=== PATIENT | male | born 1985 | race Two or more races ===

== ENCOUNTER 2022-08-11 12:13 | Emergency (ER) | payer OTHER, SELFPAY ==
--- NOTE | 2022-08-11 12:25 | ED.GENADULT ---
HPI - General Adult General Chief complaint: Abdominal Pain Stated complaint: R side pain Time Seen by Provider: 08/11/22 16:03 Source: patient Mode of arrival: ambulatory Limitations: no limitations History of Present Illness HPI narrative: Patient is a 37-year-old male with no reported past medical history presenting to emergency department for evaluation of sudden onset right sided abdominal/flank pain at 1000 today. Pain has been persistent with varying intensity. At the time my examination reportedly is severe. Has associated nausea. He also endorses difficulty with urination. Though denies dysuria, hematuria. Denies any testicular pain or swelling. He denies concern for sexually transmitted infections. Denies left-sided abdominal pain, vomiting, fevers chills, diarrhea, constipation, bloody or dark stools. Related Data Previous Rx's Medication Instructions Recorded ibuprofen 800 mg tablet 800 mg PO Q8H PRN pain #20 tabs 08/11/22 oxycodone 5 mg tablet 5 mg PO Q6H PRN pain #14 tabs 08/11/22 prednisone 20 mg tablet 20 mg PO BID 3 days #6 tabs 08/11/22 tamsulosin 0.4 mg capsule 0.4 mg PO BEDTIME #14 caps 08/11/22 Allergies Allergy/AdvReac Type Severity Reaction Status Date / Time morphine AdvReac Vomiting Verified 08/11/22 12:42 Review of Systems Review of Systems: Constitutional : No Weight loss, No Fever, No Chills ENT/Mouth :? No sore throat, No Rhinorrhea Eyes: No Swelling, No Redness Cardiovascular : No Chest Pain, No SOB, No Edema Respiratory : No Cough, No Sputum, No Wheezing Gastrointestinal : Positive Nausea, no Vomiting, no Diarrhea, positive abdominal pain, No Hematochezia, No Melena Genitourinary : No Dysuria, positive difficulty voiding No Hematuria, positive Urgency? Musculoskeletal : No joint pain, No Myalgias, No Joint Swelling Skin : No Skin Lesions, No rash Neuro : No Weakness, No Numbness, No Dizziness, No Headache Psych : No Anxiety/Panic, No Depression Heme/Lymph: No Bruising, No Lymphadenopathy Endocrine : No Polyuria, No Polydipsia Yes all other systems are reviewed and are negative PMFSH Past Medical History Attestation statement: The following information was validated with the patient. Source: old records reviewed Social History Social History Use of substances other than those prescribed or required for medical reasons: No Advance Directives: No Advance Directives Information Provided: No Physical Exam ED Vital Signs: Vital Signs - 24 hr 08/11/22 12:42 08/11/22 15:48 08/11/22 16:49 Temperature 98.1 F Pulse Rate 66 52 56 Respiratory Rate 18 18 16 Blood Pressure 138/71 150/72 H 141/61 H Pulse Oximetry 100 100 100 Oxygen Delivery Method Room Air Room Air Room Air 08/11/22 19:06 Temperature 97.9 F Pulse Rate 61 Respiratory Rate 16 Blood Pressure 129/71 Pulse Oximetry 98 Oxygen Delivery Method Room Air BMI result Body Mass Index 29.5 Appearance: Alert.?Oriented to person, place and time. No acute distress.?Normal affect. Eyes: Pupils equal, round and reactive to light.? ENT: Pharynx normal.?? Neck: Normal inspection.? Neck supple.?? CVS: Heart sounds normal. Normal heart rate and rhythm.? Pulses normal.?? Respiratory: No respiratory distress.? Lung sounds clear to auscultation bilaterally?? Abdomen: Soft with right-sided abdominal tenderness upon palpation, no rebound tenderness. No rigidity. No distention. Right CVA tenderness. Normoactive bowel sounds. No pulsatile mass.?? Skin: Skin warm and dry.? Normal skin color.? Extremities: No lower extremity edema.? Full AROM to the bilateral lower extremities Neuro: Moves all extremities spontaneously. Sensation intact bilaterally. CN II-XII intact. No focal neuro deficits. Ambulates with normal steady gait. Course Course Course Narrative: This is an RME: Additional HPI, ROS, PE not included below will be deferred to primary provider. This is a [id number]-male presenting with complaints of right sided abdominal pain, nausea, vomiting since 10:00AM. Reporting dribbling with urination. No hx of kidney stones in the past. Plan: Labs, UA, CT abdomen and pelvis w/o contrast ordered. Reevaluation(s) Reevaluation #1: CBC reveals leukocytosis, lipase and LFTs within normal limits, not consistent with biliary/hepatic etiology. CT of the abdomen and pelvis revealing a partially obstructing distal right ureteral stone at the ureterovesicular junction measuring approximately 1 cm. Pending urinalysis at this time, concern for potential infected stone given leukocytosis, urinalysis pending at this time, will cover with rocephin. In addition CT with incidental finding of a nonaggressive benign-appearing partially sclerotic lesion of the left iliac bone, patient is without any hip or pelvic pain, ambulatory with a steady gait without complication, no tenderness upon palpation. No constitutional symptoms such as fever, night sweats, unintentional weight loss. Patient made aware of this finding, advised outpatient follow-up with primary care provider for further evaluation and management. Time: 16:46 Reevaluation #2: Urinalysis without evidence of infection at this time. Pain is well controlled at this point. I suspect leukocytosis is secondary to inflammation at this time. He is tolerating oral intake. I have reviewed this case with urology; Dr. Muniz, who recommends discharge home and outpatient follow-up. Patient to be discharged with prescription for tamsulosin, NSAID, prednisone, oxycodone, and provided with strict return precautions. All questions were answered. Stable for discharge at this time. Time: 18:38 Medications Administered Discontinued Medications Generic Name Dose Route Start Last Admin Trade Name Faizanq PRN Reason Stop Dose Admin Sodium Chloride 1,000 mls @ 999 mls/hr 08/11/22 16:30 08/11/22 18:26 Ns IV 08/11/22 17:30 Infused .Q1H1M [facility]COL Infusion Ceftriaxone Sodium 1 gm/ 50 mls @ 100 mls/hr 08/11/22 18:00 08/11/22 19:08 Sodium Chloride IV 08/11/22 18:29 Infused ONCE ONE Infusion Ketorolac Tromethamine 30 mg 08/11/22 16:18 08/11/22 16:46 Ketorolac Tromethamine 30 Mg/Ml Vial IVPUSH 08/11/22 16:19 30 mg ONCE ONE Administration Ondansetron HCl 4 mg 08/11/22 16:18 08/11/22 16:46 Ondansetron Hcl 4 Mg/2 Ml Vial IVPUSH 08/11/22 16:19 4 mg ONCE ONE Administration Medical Decision Making Medical Decision Making MDM Narrative: Patient is a 37-year-old male with no reported past medical history presenting to emergency department for sudden onset right-sided abdominal pain as per HPI. At the time of my examination he appears in significant discomfort, having difficulty sitting still on the stretcher. Having nausea but no vomiting. Notable tenderness upon palpation of the right abdomen and CVA. He is afebrile and without tachycardia. Will obtain CBC to evaluate for leukocytosis/ anemia, CMP and lipase to evaluate for abnormal electrolytes /abnormal renal function/ abnormal hepatic/biliary function, CT of the abdomen and pelvis, and Urinalysis. Differential Diagnosis Differential Diagnoses: The differential diagnosis associated with the presentation includes (Appendicitis, diverticulitis, nephrolithiasis, ureteral calculi, obstructive calculi, pyelonephritis, urinary tract infection, hydronephrosis,) Admission/Observation Consideration of admission/observation: Escalation of care including admission/observation considered (I considered evaluation for abdominal pain with nausea. Please see narrative above and course.) Consult Healthcare Provider Management of the patient was discussed with: Edge Kitter (Urology; see course narrative) Lab Data MDM Lab Attestation statement: I reviewed the patient's lab results. (See narrative in course) 08/11/22 12:55 08/11/22 12:55 Labs: Lab Results 08/11/22 08/11/22 08/11/22 Range/Units 12:55 12:55 18:02 WBC 15.8 H (4.8-10.8) X10*3/uL RBC 5.43 (4.60-5.80) X10*6/uL Hgb 15.1 (14.0-18.0) g/dl Hct 43.7 (42.0-52.0) % MCV 80.5 (80.0-98.0) fL MCH 27.8 (27.0-33.0) pg MCHC 34.6 (31.0-36.0) g/dl RDW 13.2 (11.0-16.0) % Plt Count 392 (160-400) X10*3/uL MPV 9.6 (9.4-12.4) fL Immature Gran % (Auto) 0.6 H (0.0-0.4) % Neut % (Auto) 76.7 H (45-73) % Lymph % (Auto) 16.8 L (20-40) % Graham % (Auto) 4.5 (2-11) % Eos % (Auto) 1.0 (0-4) % Baso % (Auto) 0.4 (0-2) % Lymph # (Auto) 2.7 (1.2-4.9) X10*3/uL Graham # (Auto) 0.7 (0.1-1.2) X10*3/uL Eos # (Auto) 0.2 (0.0-0.4) X10*3/uL Baso # (Auto) 0.1 (0.0-0.2) X10*3/uL Abs Immat Gran (auto) 0.09 H (0.00-0.03) X10*3/uL Absolute Neuts (auto) 12.1 H (2.0-8.3) x10*3/uL Absolute Nucleated RBC 0.000 (0.0-0.012) X10*3/uL Nucleated RBC % (auto) 0.0 (0.0-0.2) /100WBC Sodium 140 (135-145) mmol/L Potassium 3.7 (3.3-5.1) mmol/L Chloride 106 (96-108) mmol/L Carbon Dioxide 19 L (22-29) mmol/L Anion Gap 19 (12-20) BUN 17 H (9-16) mg/dL Creatinine 1.21 (0.5-1.4) mg/dL Estim Creat Clear Calc 94.8 Estimated GFR > 60 Random Glucose 131 H (60-115) mg/dL Calcium 10.1 (8.4-10.2) mg/dL Magnesium 1.9 (1.6-2.6) mg/dL Total Bilirubin 0.6 (0.0-1.0) mg/dL Direct Bilirubin 0.2 (0.0-0.5) mg/dL AST 22 (5-37) U/L ALT 25 (0-40) U/L Alkaline Phosphatase 73 (39-117) U/L Total Protein 8.0 (6.5-8.0) g/dL Albumin 4.8 (3.5-5.0) g/dL Lipase 15 (8-78) U/L Urine Color Yellow Urine Appearance Cloudy Urine pH 7.5 (5.0-9.0) Ur Specific [place] 1.025 (1.005-1.025) Urine Protein 30 (1+) H (Neg-Trace) mg/dL Urine Glucose (UA) Negative (Negative) mg/dL Urine Ketones 40 (Negative) mg/dL Urine Blood Moderate (2+) H (Negative) Urine Nitrite Negative (Negative) Ur Leukocyte Esterase Negative (Negative) Urine RBC >20 H (0-2) /HPF Urine WBC 0-5 (0-5) /HPF Ur Squamous Epith Cells 0-2 (0-2) /HPF Urine Bacteria None Seen (None Seen) Hyaline Casts 0-2 (0-2) /LPF Radiology Impression Discussion of test interpretation with radiology: I have reviewed the radiologist's reading. Radiologist Impression: CT/CT abdomen pelvis wo IV con IMPRESSION: Partially obstructing distal right ureteral stone at the ureterovesical junction. This measures approximately 1 cm. ? Nonaggressive benign-appearing partially partially sclerotic lesion in left iliac bone. The appearance is nonspecific. 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 Independent Historian Clinical information obtained from an independent historian. History obtained from or confirmed by: Spouse (Patient's spouse is present at bedside and confirms history) External Record Review External record reviewed: Other (Reviewed [facility] prior to prescribing oxycodone and no conflicts) Prescription Management I considered prescription management with: Pain Medication and Other (See course narrative) Discharge Plan Discharge Clinical Impression: Right ureteral calculus Patient Disposition: Home, Self-Care Instructions: Ureteral Stones (ED) Additional Instructions: As discussed, your imaging today shows that you have a stone in your right ureter, this is the small to that allows urine to pass from your kidney to your bladder. Have sent medication to your pharmacy as discussed; Flomax to take once daily, prednisone which is a steroid that you will take twice daily for 3 days, ibuprofen 800 mg, in addition to oxycodone to use as needed for severe pain. Oxycodone is a narcotic medication it can be addictive and it may make you drowsy. He should not drive, drink alcohol, or work while taking this medication. Please contact the urology office 1st thing tomorrow morning to schedule a follow-up visit for next week. You may return back to emergency department with any new or worsening symptoms or concerns such as unrelieved pain with the medication, nausea with persistent vomiting, inability to urinate, fevers or chills Prescriptions: New tamsulosin 0.4 mg capsule 0.4 mg PO BEDTIME Qty: 14 0RF ibuprofen 800 mg tablet 800 mg PO Q8H PRN (Reason: pain) Qty: 20 0RF prednisone 20 mg tablet 20 mg PO BID 3 Days Qty: 6 0RF oxycodone 5 mg tablet 5 mg PO Q6H PRN (Reason: pain) Qty: 14 0RF Rx Instructions: Partial Fill upon patient request. Referrals: Sri Muniz MD [Physician] -
[2022-08-11 12:42] VITALS: BP 138/71; PULSE 66; RESP 18; TEMP 36.7; O2SAT 100; BMI 29.5
[2022-08-11 15:48] VITALS: BP 150/72; PULSE 52; RESP 18; O2SAT 100
--- NOTE | 2022-08-11 16:48 | PC.NURSE ---
20 g IV L AC, fluids and meds given per order.
[2022-08-11 16:49] VITALS: BP 141/61; PULSE 56; RESP 16; O2SAT 100
[2022-08-11 19:06] VITALS: BP 129/71; PULSE 61; RESP 16; TEMP 36.6; O2SAT 98
== END 2022-08-11 19:34 | disposition home or self-care (01) ==
PROVIDERS: Emergency Provider Student in an Organized Health Care Education/Training Program
DX: N20.0 Calculus of kidney (principal)
CPT/HCPCS: 36415; 74176; 80048; 80076; 81001; 83690; 83735; 85025; 96361; 96365; 96375; 99284; J0696; J1885; J2405

== ENCOUNTER 2024-12-29 21:42 | Emergency (ER) | payer SELFPAY ==
--- NOTE | ~2024-12-29 | XR_ITS ---
CLINICAL HISTORY: pain swelling post fall 3 view left ankle Comparison: None provided Findings: There is an acute displaced fracture of the medial malleolus with overlying soft tissue swelling. The ankle mortise is intact. There is soft tissue swelling overlying the lateral malleolus. Large ankle joint effusion. No significant degenerative change. IMPRESSION: Acute displaced fracture of the medial malleolus with large ankle joint effusion This document has been electronically signed by: Shaggy Randall MD on 12/29/2024 22:31:00
[2024-12-29 21:47] VITALS: BP 115/61; PULSE 67; RESP 16; TEMP 36.9; O2SAT 99; BMI 30.6
--- NOTE | 2024-12-29 22:46 | ED_ITS ---
HPI - Extremity Injury (Lower) General Chief Complaint: Extremity Injury, Lower Stated Complaint: Injury Time Seen by Provider: 12/29/24 22:27 Source: patient, RN notes reviewed and old records reviewed Mode of arrival: ambulatory Limitations: no limitations History of Present Illness ED Provider: Ana Paula REYES Narrative: Patient is a 39 year old male presenting today after slip and fall down a slippery grassy hill about an hour ago where he twisted his left ankle and heard a crack. Denies pain in back, head, pelvis. Pt has full ROM and sensation of the the LLE. Tenderness with palpation of the left calf and ankle. No headstike or LOC. Related Data Previous Rx's ?Medication ?Instructions ?Recorded ibuprofen 800 mg tablet 800 mg PO Q8H PRN pain #20 t abs 08/11/22 oxycodone 5 mg tablet 5 mg PO Q6H PRN pain #14 tab s 08/11/22 prednisone 20 mg tablet 20 mg PO BID 3 days #6 tabs 08/11/22 tamsulosin 0.4 mg capsule 0.4 mg PO BEDTIME #14 caps 0 08/11/22 ibuprofen 600 mg tablet 600 mg PO Q6H PRN pain #20 t abs 12/29/24 oxycodone 5 mg tablet 5 mg PO Q8H PRN severe pain (scale 12/29/24 score 7-10) #14 tabs Allergies Allergy/AdvReac Type Severity Reaction Status Date / Time morphine AdvReac Vomiting Verified 12/29/24 21:52 Review of Systems Constitutional: Constitutional: Reports as per HPI, Denies chills, Denies fatigue, Denies fever(s) and Denies headache(s) ENT: Denies headache(s) Cardiovascular: Cardiovascular: Denies chest pain and Denies dyspnea Respiratory: Respiratory: Denies cough and Denies dyspnea Gastrointestinal: Gastrointestinal: Denies abdominal pain, Denies constipation and Denies vomiting Genitourinary: Genitourinary: Denies difficulty urinating and Denies dysuria Musculoskeletal: Musculoskeletal: Reports abnormal gait, Reports arthralgias (Left ankle), Reports joint swelling (left ankle) and Reports limited range of motion Integumentary/Breasts: Skin/Breast: Denies erythema and Denies rash Neurologic: Reports abnormal gait, Denies headache(s) and Denies focal weakness Endocrine: Endocrine: Denies fatigue PMFSH Social History Social History Alcohol intake: never Smoked in Last 30 Days: No Use of substances other than those prescribed or required for medical reasons: Yes Substance Use Type: Marijuana Substance Use Frequency: Occasionally Advance Directives: No Advance Directives Information Provided: No Physical Exam Vital Signs: Vital Signs: Last Vital Signs Temp 98.5 F 12/29/24 21:47 Pulse 67 12/29/24 21:47 Resp 16 12/29/24 21:47 BP 115/61 12/29/24 21:47 Pulse Ox 99 12/29/24 21:47 O2 Del Method Room Air 12/29/24 21:47 BMI result Body Mass Index 30.6 Const: General: healthy appearing, comfortable, no acute distress, alert and awake Nutritional Appearance: well nourished Orientation/consciousness: patient oriented x3 HEENT: Head: Yes normocephalic and Yes atraumatic Resp: Effort & Inspection: normal respiratory effort, able to speak in comp lete sentences and not labored Skin: General skin exam: no rashes or lesions noted and elasticity normal Neuro: General: patient oriented x3 Cognition (Neuro): normal cognition Extrem: Other: There is edema to the medial and lateral malleolus of the left ankle. There appears to be worsening edema over the medial malleolus. This area is tender to palpation. There was minimal left lateral malleolus tenderness. Distal sensation and capillary refill is intact. No Achilles tenderness or calf tenderness. General: Yes normal exam except as noted Left lower extremity: full ROM, normal capillary refill and ankle Details: tenderness, swelling and normal ROM; no warmth and no penetrating wound Medications Administered Discontinued Medications Generic Name Dose Route Start Last Admin Trade Name Venkat PRN Reason Stop Dose Admin Ibuprofen 600 mg 12/29/24 21:52 12/29/24 21:55 Ibuprofen 600 Mg Tablet PO 12/29/24 21:53 600 mg ONCE ONE Administration Oxycodone HCl 5 mg 12/29/24 23:08 12/29/24 23:17 Oxycodone Hcl Immed Release 5 Mg Tablet PO 12/29/24 23:09 5 mg ONCE ONE Administration Medical Decision Making Medical Decision Making [facility] Narrative: 39-year-old male presents for evaluation of left ankle injury after falling. His x-ray shows a medial malleolus fracture with some displacement. There has a large joint effusion. I discussed with orthopedics who recommended splinting with the patient and have him follow up as opposed to a high walking boot. The patient will be given crutches and made nonweightbearing until he follows up with Orthopedics. Differential Diagnosis Differential Diagnoses: The differential diagnosis associated with the presentation includes Ankle sprain Ankle fracture Ankle dislocation Contusion Consult Healthcare Provider Management of the patient was discussed with: Nuclear Technologist (Stephanie Lizama, orthopedics) Procedures Orthopedic Splinting/Casting Injury #1: Side: left Lower Extremity Injury Location: ankle Lower Extremity Immobilizer: stirrup splint Other Orthopedic Equipment: crutches Additional Comments: The patient tolerated the procedure well, there were no complications. Post exam neurovascular status remains unchanged Discharge Plan Discharge Clinical Impression: Ankle fracture, left Patient Disposition: Home, Self-Care Instructions: Leg Fracture (ED) Additional Instructions: You have a fracture of your left ankle. Keep the splint on until you follow up with Orthopedics pain However if your toes or change in color or you are having unbearable pain you may remove the splint and presents here orthopedic office or to the ER as the splint may have been too tight. Use ibuprofen and Tylenol for pain. You may use oxycodone for severe breakthrough pain. This may make you drowsy, do not drink alcohol or drive after taking it. Follow up with Orthopedics at the number provided. Call tomorrow to make an appointment Prescriptions: New oxycodone 5 mg tablet 5 mg PO Q8H PRN (Reason: severe pain (scale score 7-10)) Qty: 14 0RF Rx Instructions: Partial Fill upon patient request. ibuprofen 600 mg tablet 600 mg PO Q6H PRN (Reason: pain) Qty: 20 0RF No Action tamsulosin 0.4 mg capsule 0.4 mg PO BEDTIME Qty: 14 0RF ibuprofen 800 mg tablet 800 mg PO Q8H PRN (Reason: pain) Qty: 20 0RF prednisone 20 mg tablet 20 mg PO BID 3 Days Qty: 6 0RF oxycodone 5 mg tablet 5 mg PO Q6H PRN (Reason: pain) Qty: 14 0RF Rx Instructions: Partial Fill upon patient request. Referrals: [facility] [Provider Group] Referral Note: left ankle fracture Stand Alone Forms: Work/School Release Print Language: Azeri
[2024-12-29] MEDS: oxyCODONE HCl Immed Release 5 MG TABLET PO (23:17)
[2024-12-29 23:33] VITALS: BP 115/61; PULSE 67; RESP 16; TEMP 36.9; O2SAT 99
== END 2024-12-29 23:47 | disposition home or self-care (01) ==
PROVIDERS: Emergency Provider Emergency Medicine
DX: S82.892A Other fracture of left lower leg, initial encounter for closed fracture (principal); M25.572 Pain in left ankle and joints of left foot; X50.1XXA Overexertion from prolonged static or awkward postures, initial encounter; Y93.9 Activity, unspecified; Y92.9 Unspecified place or not applicable; Y99.8 Other external cause status
CPT/HCPCS: 29515; 73610; 99283; 99284

== ENCOUNTER → 2024-12-29 21:58 | Outpatient (BNV) | payer SELFPAY | PROVIDERS: Visit Provider Student in an Organized Health Care Education/Training Program | DX: S82.52XA Displaced fracture of medial malleolus of left tibia, initial encounter for closed fracture (principal); M25.472 Effusion, left ankle | CPT/HCPCS: 73610 ==